=== PATIENT | female | born 1995 | race Caucasian/White ===

== ENCOUNTER 2021-01-01 16:03 | Inpatient (IN) | payer OTHER ==
[~2021-01-01] VITALS: Ht 182.9 cm; Wt 127.0 kg
[2021-01-01 16:42] LABS: HEMOGLOBIN 10.8 gm/dl (12.3-15.3); RED BLOOD COUNT 3.48 M/UL (4.00-5.10); WHITE BLOOD COUNT 11.2 K/UL (4.5-11.0)
[2021-01-02] MEDS ORDERED: DOCUSATE SODIU100 MG PO (16:28)
[2021-01-02] MEDS ORDERED: IBUPROFEN600 MG PO (16:28)
[2021-01-03 05:02] LABS: HEMOGLOBIN 9.7 gm/dl (12.3-15.3)
== END 2021-01-04 13:45 | disposition home or self-care (01) | DRG 807 ==
LOC: GENOP 16:03 → OB 16:15
PROVIDERS: Obstetrics & Gynecology; ADMIT Obstetrics & Gynecology
PROC: 4A1HXCZ Monitoring of Products of Conception, Cardiac Rate, External Approach (ICD-10-PCS; 2021-01-01)
PROC: 10E0XZZ Delivery of Products of Conception, External Approach (ICD-10-PCS; principal; 2021-01-02)
PROC: 3E033VJ Introduction of Other Hormone into Peripheral Vein, Percutaneous Approach (ICD-10-PCS; 2021-01-02)
PROC: 10907ZC Drainage of Amniotic Fluid, Therapeutic from Products of Conception, Via Natural or Artificial Opening (ICD-10-PCS; 2021-01-02)
DX: O36.5930 Maternal care for other known or suspected poor fetal growth, third trimester, not applicable or unspecified (principal); Z37.0 Single live birth; O99.344 Other mental disorders complicating childbirth; Z3A.37 37 weeks gestation of pregnancy; F41.9 Anxiety disorder, unspecified; F32.9 Major depressive disorder, single episode, unspecified; Z20.822 Contact with and (suspected) exposure to COVID-19
CPT/HCPCS: 36415; 51702; 81001; 85014; 85018; 85025; 90715; J2590; U0003